=== PATIENT | female | born 1940 | race Hispanic/Latino ===

== ENCOUNTER 2023-12-17 10:42 | Inpatient (IN) | payer MEDICARE, BC ==
[2023-12-17 13:14] LABS: Troponin I Less than 0.010 ng/mL (< 0.028)
[2023-12-17] MEDS ORDERED: Ondansetron PF 4 MG/2 ML Vial IVP PRN (13:34)
[2023-12-17] MEDS: Sodium Chloride 0.9% 1,000 ML IV SCH (14:21)
[2023-12-17 14:26] VITALS: BMI 28.2
[2023-12-17] MEDS: Acetaminophen 325 MG TAB PO SCH (18:28)
[2023-12-18 05:29] LABS: ALT (SGPT) 21 U/L (8-55); AST (SGOT) 26 U/L (5-34); Albumin 3.5 g/dL (3.4-4.8); Alkaline Phosphatase 88 U/L (40-110); Anion Gap 14 mmol/L (10-20); BUN (Urea Nitrogen) 17 mg/dL (9.8-20.1); Bilirubin, Total 1.4 mg/dL (0.2-1.2); Calc. Creatinine Clearance 53 mL/min (70-130); Calcium 8.8 mg/dL (7.8-10.44); Carbon Dioxide 20 mmol/L (23-31); Chloride 110 mmol/L (98-107); Estimated GFR 82; Globulin 3.4 g/dL (2.4-3.5); Glucose 107 mg/dL (83-110); Potassium 3.7 mmol/L (3.5-5.1); Protein, Total 6.9 g/dL (5.8-8.1); Sodium 140 mmol/L (136-145)
[2023-12-18] MEDS: Atorvastatin Calcium 40 MG TAB PO SCH (11:09)
[2023-12-18 11:37] VITALS: BMI 28.2
[2023-12-18] MEDS: Lactated Ringer's 1,000 ML IV SCH (21:55)
[2023-12-19 05:02] LABS: #Basophils 0.06 10x3/uL (0.0-0.2); %Basophils 0.9 % (0.0-1.0); %Eosinophils 2.7 % (0.0-10.0); %Lymphocytes 38.5 % (21.0-51.0); %Monocytes 9.7 % (0.0-10.0); %Neutrophils 47.9 % (42.0-75.0); Hematocrit 38.9 % (36.0-47.0); Hemoglobin 13.5 g/dL (12.0-16.0); Mean Corpuscular HGB CONC 34.7 g/dL (32.0-36.0); Mean Corpuscular Volume 92.2 fL (78.0-98.0); Platelet Count 148 10x3/uL (130-400); RBC Distribution Width 12.1 % (11.5-14.5); Red Blood Cell (RBC) Count 4.22 mill/uL (4.20-5.40)
[2023-12-19 05:20] LABS: ALT (SGPT) 18 U/L (8-55); AST (SGOT) 25 U/L (5-34); Albumin 3.4 g/dL (3.4-4.8); Alkaline Phosphatase 87 U/L (40-110); Anion Gap 15 mmol/L (10-20); BUN (Urea Nitrogen) 14 mg/dL (9.8-20.1); Bilirubin, Total 1.1 mg/dL (0.2-1.2); Calc. Creatinine Clearance 59 mL/min (70-130); Calcium 8.7 mg/dL (7.8-10.44); Carbon Dioxide 21 mmol/L (23-31); Chloride 109 mmol/L (98-107); Estimated GFR 87; Globulin 3.2 g/dL (2.4-3.5); Glucose 101 mg/dL (83-110); Potassium 3.5 mmol/L (3.5-5.1); Protein, Total 6.6 g/dL (5.8-8.1); Sodium 141 mmol/L (136-145)
[2023-12-19] MEDS: Indocyanine Green 25 MG/10 ML VIAL IVP SCH (08:46)
[2023-12-19] MEDS ORDERED: fentaNYL PF 100 MCG/2 ML SYRINGE ONE ×2 (09:03→11:34)
[2023-12-19] MEDS ORDERED: Rocuronium Bromide 10 MG/ML (10ML VIAL) ONE (09:03)
[2023-12-19] MEDS ORDERED: Dexamethasone 20 MG/5 ML VIAL ONE (09:03)
[2023-12-19] MEDS ORDERED: PROPOFOL 20 ML ONE (09:03)
[2023-12-19] MEDS ORDERED: Ondansetron PF 4 MG/2 ML Vial ONE (09:03)
[2023-12-19] MEDS ORDERED: Lidocaine 1% PF 5 ML VIAL ONE (09:03)
[2023-12-19] MEDS ORDERED: Bupivacaine 0.25% HCL 30 ML VIAL ONE (09:29)
[2023-12-19] MEDS ORDERED: EPINEPHrine 1 MG/ML VIAL ONE (09:29)
[2023-12-19] MEDS ORDERED: CEFAZOLIN 2 GM VIAL ONE (09:30)
[2023-12-19] MEDS ORDERED: Etomidate 40 MG (20 mL) VIAL ONE (10:07)
[2023-12-19] MEDS ORDERED: Sterile Water 20 ML ONE (10:26)
[2023-12-19] MEDS ORDERED: PHENYLEPHRINE-NS 100 MCG/ML 10 ML SYRINGE ONE (10:31)
[2023-12-19] MEDS ORDERED: Lidocaine 2% 6 ML (Jelly) SYR ONE (11:07)
[2023-12-19] MEDS ORDERED: SUGAMMADEX SODIUM 200 MG/2 ML VIAL ONE (11:14)
[2023-12-19] MEDS ORDERED: Ondansetron HCl/PF 4 MG/2 ML Vial IVP PRN (11:29)
[2023-12-19] MEDS ORDERED: Promethazine HCl 25 MG/ML VIAL IM PRN (11:29)
[2023-12-19] MEDS ORDERED: Dextrose 50% Abboject 50 ML SYRINGE SLOW IVP PRN (11:33)
[2023-12-19] MEDS ORDERED: Calcium Carbonate 500 MG ChewTAB PO PRN (11:33)
[2023-12-19] MEDS ORDERED: Ondansetron PF 4 MG/2 ML Vial IVP PRN (11:33)
[2023-12-19] MEDS ORDERED: Glucagon 1 MG/ML KIT IM PRN (11:33)
[2023-12-19] MEDS ORDERED: Dextrose 5% in Water 1,000 ML IV PRN (11:33)
[2023-12-19] MEDS ORDERED: Ketorolac Tromethamine 30 MG (1 mL) VIAL ONE (11:42)
[2023-12-19] MEDS ORDERED: D5 1/2 NS w/20 mEq KCL 1,000 ML ONE (11:43)
[2023-12-19] MEDS ORDERED: Promethazine HCl 25 MG/ML VIAL ONE (11:47)
[2023-12-19] MEDS: D5 1/2 NS w/20 mEq KCL 1,000 ML IV SCH (12:20)
[2023-12-19] MEDS: Ketorolac Tromethamine 30 MG (1 mL) VIAL IVP SCH (13:03)
[2023-12-19] MEDS: HYDROcodone/Acetaminophen 10/325 mg Tablet PO PRN (15:16)
[2023-12-19] MEDS: Morphine 2 MG/ML VIAL SLOW IVP PRN (17:03)
[2023-12-20] MEDS: Famotidine 20 MG TAB PO SCH (08:51)
[2023-12-20 12:56] VITALS: BP 154/68; TEMP 97.7
[2023-12-20] MEDS ORDERED: FLU (Fluad Triv) TS24-25 (65UP)/MF59C/PF 45 MCG/0.5 ML Syringe IM ONE (19:45)
== END 2023-12-20 14:45 | disposition home or self-care (01) | DRG 419 ==
LOC: ERS 10:42 → ERHOLD 13:39 → 2NO 18:11
PROVIDERS: ADMIT Surgery; ATTEND Surgery
PROC: 0FT44ZZ Resection of Gallbladder, Percutaneous Endoscopic Approach (ICD-10-PCS; principal; 2023-12-19)
PROC: 8E0W4CZ Robotic Assisted Procedure of Trunk Region, Percutaneous Endoscopic Approach (ICD-10-PCS; 2023-12-19)
PROC: BF131ZZ Fluoroscopy of Gallbladder and Bile Ducts using Low Osmolar Contrast (ICD-10-PCS; 2023-12-19)
DX: K81.0 Acute cholecystitis (principal); I10 Essential (primary) hypertension; E78.5 Hyperlipidemia, unspecified; Z86.73 Personal history of transient ischemic attack (TIA), and cerebral infarction without residual deficits; Z79.82 Long term (current) use of aspirin; Z79.899 Other long term (current) drug therapy; Z88.2 Allergy status to sulfonamides; Z90.710 Acquired absence of both cervix and uterus
CPT/HCPCS: 36415; 76705; 78226; 80053; 85025; 88304; 93306; A9537; C1713; J0171; J0665; J1100; J1885; J2272; J2405; J2550; J2704; J3480; J7030; J7120